=== PATIENT | male | born 1955 | race Caucasian/White ===

== ENCOUNTER 2017-01-30 19:26 | Emergency (ER) | payer OTHER ==
[~2017-01-30] VITALS: Ht 188 cm; Wt 110.0 kg
[2017-01-30 19:27] VITALS: Ht 188 cm; Wt 110.0 kg
--- NOTE | 2017-01-30 19:48 | RADRPT ---
PROCEDURE: CT Brain without contrast. CLINICAL INDICATION: Neurologic deficit, code stroke TECHNIQUE: A CT of the brain was performed utilizing axial sections from the skull base through th e vertex without contrast. Multiplanar re-formations were generated. Images were reviewed on a high- resolution PACS workstation. CTDIvol: 43.95 mGy. DLP: 810.25 mGy-cm. One or more of the following dose reduction techniques were used: - Automated exposure control. - Adjustment of the mA and/or kV according to patient size. - Use of iterative reconstruction technique. COMPARISON: None available FINDINGS: There is mild generalized volume loss. No hydrocephalus is seen. There is no mass effect. No acute intracranial hemorrhage is identified. There is no extra-axial collection. There is loss of chino-wh ite matter differentiation in the anterior left temporal lobe without volume loss, consistent with a moderate-sized acute to subacute infarction. There is patchy low attenuation in the supratentorial white matter, a nonspecific finding which most likely represents the sequela of mild chronic microva scular ischemic disease. There are mild atherosclerotic arterial calcifications. There is no significant mucosal disease in the paranasal sinuses. The visualized mastoid air cells a re clear. The ossesous structures are unremarkable. The extracranial soft tissues are unremarkable. IMPRESSION: 1. Moderate sized acute to subacute infarction in the anterior left temporal lobe. There is no hem orrhagic transformation. 2. Mild generalized volume loss. 3. Mild chronic microvascular ischemic changes. 4. Atherosclerotic arterial calcifications. Critical Results were called to Dr. Díaz at 07:43 p.m. on 01/30/2017. RPTAT: HTAR .Julio Branch MD, Date Time Electronically viewed and signed by .Julio Branch MD, on 01/30/2017 19:48 .R/
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
[2017-01-30] MEDS ORDERED: LEVETIRACETAM 1000 MG (PMX) 100 ML IVPB STA (20:27)
[2017-01-30] MEDS ORDERED: IODIXANOL LOCM 100 ML BTL ONE (20:29)
[2017-01-30] MEDS ORDERED: SOD CHLORIDE 0.9% 100 ML ONE (20:29)
[2017-01-30] MEDS ORDERED: IODIXANOL LOCM 50 ML BTL ONE (20:30)
[2017-01-30] MEDS ORDERED: SOD CHLORIDE 0.9% 1,000 ML IV STA (20:36)
[2017-01-30 20:42] LABS: ADD SCAN DIFF NO
[2017-01-30 20:44] LABS: BASOPHIL # 0.1 10^3/ul (0.0-0.1); BASOPHILS % 0.5 % (0.0-2.0); EOSINOPHILS # 0.2 10^3/ul (0.0-0.5); EOSINOPHILS % 1.6 % (0.0-7.0); HEMATOCRIT 42.3 % (42.0-52.0); HEMOGLOBIN 13.9 g/dl (14.0-18.0); LYMPHOCYTES # 1.9 10^3/ul (0.8-2.9); LYMPHOCYTES % 19.4 % (15.0-51.0); MEAN CORPUSCULAR HEMOGLOBIN 30.6 pg (29.0-33.0); MEAN CORPUSCULAR HGB CONC 32.9 g/dl (32.0-37.0); MEAN CORPUSCULAR VOLUME 93.2 fl (82.0-101.0); MEAN PLATELET VOLUME 10.2 fl (7.4-10.4); MONOCYTE # 0.8 10^3/ul (0.3-0.9); MONOCYTES % 8.1 % (0.0-11.0); NEUTROPHIL # 6.8 10^3/ul (1.6-7.5); NEUTROPHILS % 69.7 % (39.0-77.0); PLATELET COUNT 278 10^3/UL (140-415); RED BLOOD COUNT 4.54 10^6/ul (4.70-6.10); RED CELL DISTRIBUTION WIDTH 13.3 % (11.5-14.5); WHITE BLOOD COUNT 9.8 10^3/ul (4.8-10.8)
[2017-01-30 20:48] LABS: CALCIUM 9.5 mg/dl (8.4-10.2); CREATININE 1.08 mg/dl (0.61-1.24); INR 0.9; POTASSIUM 4.9 mmol/L (3.5-5.1); PROTIME 12.1 Sec (12.2-14.2); PT RATIO 0.9
[2017-01-30 20:49] LABS: PARTIAL THROMBOPLASTIN TIME 33.4 Sec (25.0-35.0)
[2017-01-30 21:00] LABS: TROPONIN-I 0.037 ng/ml (0.00-0.12)
[2017-01-30 21:01] LABS: ADD UMIC YES; URINE BILIRUBIN (Dip) NEGATIVE (NEGATIVE); URINE BLOOD (Dip) 1+ (NEGATIVE); URINE COLOR LT. YELLOW (YELLOW); URINE GLUCOSE (Dip) >=1000 % (NEGATIVE); URINE KETONES (Dip) NEGATIVE (NEGATIVE); URINE LEUKOCYTE ESTERASE (Dip) NEGATIVE (NEGATIVE); URINE NITRITE (Dip) NEGATIVE (NEGATIVE); URINE TOTAL PROTEIN (Dip) NEGATIVE (NEGATIVE); URINE UROBILINOGEN (Dip) 0.2 E.U./dL (0.1-1.0)
[2017-01-30] MEDS ORDERED: GLIP1TAB5 PO (21:12)
[2017-01-30] MEDS ORDERED: ASPI-664 PO (21:13)
[2017-01-30] MEDS ORDERED: SIMV20TA2 PO (21:14)
[2017-01-30 21:15] LABS: BACTERIA,URINE RARE; SQUAMOUS EPITHELIAL CELL,UR RARE
[2017-01-30] MEDS ORDERED: LISI10TA2 PO (21:15)
[2017-01-30] MEDS ORDERED: LORAZEPAM 2 MG INJ ONE ×3 (21:22→22:58)
--- NOTE | 2017-01-30 22:04 | RADRPT ---
PROCEDURE: XR Chest. CLINICAL INDICATION: Focal neurological deficit.. TECHNIQUE: Single frontal chest x-ray. COMPARISON: None. FINDINGS: Heart is enlarged.. There is no CHF.. No focal infiltrate is seen. There is no pleural effusion. There is no pneumothorax. The osseous structures are unremarkable. IMPRESSION: Cardiomegaly. No CHF or infiltrate. RPTAT: HMVK .Sandeep Lewis MD, MD Date Time Electronically viewed and signed by .Sandeep Lewis MD, on 01/30/2017 22:04 .K/
[2017-01-30 22:09] LABS: BARBITURATES Negative (NEGATIVE); BENZODIAZEPINES Negative (NEGATIVE); COCAINE Negative (NEGATIVE); OPIATES Negative (NEGATIVE)
[2017-01-30 22:42] LABS: CANNABINOIDS Negative (NEGATIVE)
[2017-01-30] MEDS ORDERED: LORAZEPAM 2 MG INJ IV ONE (23:00)
--- NOTE | 2017-01-30 23:07 | RADRPT ---
PROCEDURE: CTA head and neck CLINICAL INDICATION: stroke and carotid stenosis TECHNIQUE: The study was performed utilizing a multidetector CT scanner. Direct thin section helic al 0.625 mm axial sections were obtained through the head and neck after the uneventful administrati on of 100 cc of Visipaque 320 nonionic intravenous contrast material. Coronal and sagittal as well as maximal intensity projection reformations were obtained. 3-D images were made. The images were r eviewed on a PACS workstation. The total CTDIvol is 17.98 mGy and the DLP is 805.07 mGy-cm. One or m ore of the following dose reduction techniques were utilized: Automated exposure control, adjustmen t of the mA and/or kV according to patient size, use of iterative reconstruction technique. COMPARISON: No prior studies are available for comparison. FINDINGS: CTA BRAIN: Nonvisualization of in the distal internal carotid artery compatible with arterial occlusion. Occlu iván of the right middle cerebral artery with thrombus visualized in the proximal M1 and A1 segments . The remaining middle cerebral artery branches are not visualized. There is diffuse cerebral edema throughout the entire right frontal lobe compatible with MCA territorial acute / subacute infarct. Mass effect on the right lateral ventricle without definite midline shift. Low attenuation of the anterior left temporal lobe compatible with acute / subacute ischemic infarct . The left middle cerebral artery branches demonstrate no large branch occlusion or definite intral uminal thrombus. The right distal A1 segment appears grossly patent. The anterior cerebral arteries and left middle cerebral artery appear patent and normal in caliber. The posterior communicating arteries and anteri or communicating artery are patent. The posterior cerebral arteries, basilar artery, and intracranial vertebral arteries are patent and normal in caliber . dominant left vertebral artery and patent basilar artery. No evidence of intracranial aneurysm or vascular malformation is identified. CTA NECK: Aorta: The origins of the great vessels off the aortic arch are patent and normal in caliber withou t significant stenosis. R CCA: Patent and normal in caliber. L CCA: Patent and normal in caliber. Right ICA: Occlusion of the right internal carotid artery at its origin with thrombus along the enti re course of the extracranial and visualized intracranial internal carotid artery. Circumferential atherosclerotic plaque at the origin of the bulb. The external carotid artery and its branches is pa tent and normal in caliber. Left ICA: Minimal circumferential atherosclerotic calcified and soft plaque without focal narrowing or hemodynamically significant stenosis. The external carotid artery and its branches is patent and normal in caliber. Vertebral arteries: The vertebral arteries are patent, and normal in caliber. Dominant left vertebra l artery. No hemodynamically significant stenosis or evidence of arterial dissection. IMPRESSION: 1. Occlusion of the right internal carotid artery at its origin extending to the level of the right middle cerebral and proximal anterior cerebral artery as described in detail above. 2. Large right territorial acute / subacute MCA infarct with cerebral edema and loss of chino-white differentiation. No evidence of intracranial hemorrhage. 3. Left anterior temporal lobe acute/subacute ischemic infarct without evidence of left MCA arteria l branch occlusion. Diffusion weighted MRI may be considered for further evaluation. 4. Results were discussed with Junior Díaz 01/30/2017 10:43:43 PM . RPTAT:AAJJ Physician Nae Date Time Electronically viewed and signed by Physician Nae on 01/30/2017 23:06 DOMINGO/
[2017-01-30 23:24] VITALS: BP 150/91; PULSE 99; RESP 18; TEMP 98.4
[2017-01-31] MEDS ORDERED: LORAZEPAM 2 MG INJ IV ONE ×3 (01:00→05:00)
== END 2017-01-31 00:52 | disposition short-term general hospital (02) ==
LOC: E/R 19:26
DX: I63.9 Cerebral infarction, unspecified (principal); I10 Essential (primary) hypertension; E11.9 Type 2 diabetes mellitus without complications; Z79.82 Long term (current) use of aspirin; Z79.84 Long term (current) use of oral hypoglycemic drugs
CPT/HCPCS: 70450; 70496; 70498; 71010; 80048; 80307; 81001; 83036; 84484; 85025; 85610; 85730; 93005; J1953; J2060; J7030; Q9967; 36415; 81003; 96374; 96375; 96376